=== PATIENT | male | born 1940 | race Caucasian/White ===

== ENCOUNTER 2020-02-16 09:28 | Outpatient (CLI) | payer MEDICARE, OTHER ==
[2020-02-16 10:06] LABS: BASOPHILS % (AUTO) 0.4 %; EOSINOPHILS # (AUTO) 0.1 10^3/uL (0.0-0.7); EOSINOPHILS % (AUTO) 1.4 %; HGB - HEMOGLOBIN 15.4 g/dL (14.0-18.0); LYMPHOCYTES % (AUTO) 12.2 %; MEAN CORPUSCULAR HEMOGLOBIN 30.3 pg (27.0-31.0); MEAN CORPUSCULAR HGB CONC 34.1 g/dL (32.0-36.0); MONOCYTES # (AUTO) 0.5 10^3/uL (0.0-1.0); MONOCYTES % (AUTO) 6.2 %; NEUTROPHILS # (AUTO) 6.4 10^3/uL (1.5-6.6); NEUTROPHILS % (AUTO) 79.4 %; PLT - PLATELET COUNT 180 10^3/uL (130-450); RED BLOOD COUNT 5.08 10^6/uL (4.70-6.10)
[2020-02-16 10:20] LABS: ALBUMIN 3.9 g/dL (3.2-5.5); ALBUMIN/GLOBULIN RATIO 1.4 (1.0-2.2); ALKALINE PHOSPHATASE 92 IU/L (42-121); ALT ALANINE AMINOTRANSFERASE < 10 IU/L (10-60); AST ASPARTATE AMINOTRANSFERASE 19 IU/L (10-42); BILIRUBIN,TOTAL 0.9 mg/dL (0.2-1.0); BUN - BLOOD UREA NITROGEN 15 mg/dL (6-20); CALCIUM 8.6 mg/dL (8.5-10.3); CARBON DIOXIDE - CO2 29 mmol/L (21-32); CHLORIDE 104 mmol/L (101-111); GLUCOSE 105 mg/dL (70-100); SODIUM 140 mmol/L (135-145); TOTAL PROTEIN 6.6 g/dL (6.7-8.2)
[2020-02-16 10:33] LABS: HEMOGLOBIN A1C 0.56 g/dL; HEMOGLOBIN A1C % 5.4 % (4.6-6.2)
--- NOTE | 2020-02-16 15:02 | XRAY Report ---
Reason: COPD,TABACCO DEPENDENCE,ESSENTIAL HTN Procedure Date: 02/16/2020 Accession Number: [id number] / [id number] Procedure: XR - Chest 2 View X-Ray CPT Code: 95929 Final Report FULL RESULT: EXAM: CHEST RADIOGRAPHY EXAM DATE: 02/16/2020 09:47 AM. CLINICAL HISTORY: COPD, TOBACCO DEPENDENCE, ESSENTIAL HTN. COMPARISON: XR CHEST PA AND LAT 11/03/2012 10:36 AM. TECHNIQUE: 2 views. FINDINGS: Lungs/Pleura: Trace bilateral pleural effusion seen, with right basilar airspace opacity suggestive of atelectasis versus infiltrate. Mediastinum: Heart and mediastinal contours are unremarkable. There is aortic tortuosity. Other: None. IMPRESSION: 1. Trace bilateral effusions with right basilar atelectasis versus infiltrate. RADIA
== END 2020-02-16 09:29 | disposition home or self-care (01) ==
LOC: LAB 09:28
PROVIDERS: ATTEND Family Medicine
DX: J44.9 Chronic obstructive pulmonary disease, unspecified (principal); F17.200 Nicotine dependence, unspecified, uncomplicated; R63.4 Abnormal weight loss; I10 Essential (primary) hypertension; N40.0 Benign prostatic hyperplasia without lower urinary tract symptoms; J90 Pleural effusion, not elsewhere classified
CPT/HCPCS: 36415; 71046; 80053; 83036; 84153; 84443; 85025

== ENCOUNTER 2020-06-07 13:16 | Outpatient (CLI) | payer MEDICARE, OTHER | END 2020-06-07 13:17 | disposition home or self-care (01) | LOC: COV 13:16 | PROVIDERS: ATTEND Surgery | DX: Z01.818 Encounter for other preprocedural examination (principal); K40.20 Bilateral inguinal hernia, without obstruction or gangrene, not specified as recurrent; Z20.828 Contact with and (suspected) exposure to other viral communicable diseases ==

== ENCOUNTER 2020-06-11 10:12 | Day surgery (SDC) | payer MEDICARE, OTHER ==
[2020-06-11] MEDS ORDERED: LIDOCAINE-MPF 2% 5 ML VIAL IM ONE (10:13)
[2020-06-11] MEDS ORDERED: fentaNYL 100 MCG/2 ML VIAL IVP ONE (10:13)
[2020-06-11] MEDS ORDERED: ONDANSETRON 4 MG/2 ML VIAL IVP ONE (10:13)
[2020-06-11] MEDS ORDERED: PROPOFOL 200 MG/20 ML VIAL IVP ONE (10:13)
[2020-06-11] MEDS ORDERED: DEXAMETHASONE 4 MG/ML VIAL IVP ONE (10:13)
[2020-06-11] MEDS ORDERED: ePHEDrine 50 MG/ML VIAL IVP ONE (10:13)
[2020-06-11] MEDS ORDERED: HYDROmorphone 1 MG/ML CARPUJECT IVP ONE (10:13)
[2020-06-11] MEDS ORDERED: LACTATED RINGERS 1,000 ML IV ONE ×2 (10:23→14:39)
[2020-06-11] MEDS ORDERED: CEFAZOLIN SODIUM IN 0.9 % NACL 2 GM/100 ML BAG IV ONE (10:27)
[2020-06-11] MEDS ORDERED: ONDANSETRON 4 MG/2 ML VIAL IVP PRN ×2 (11:22→14:22)
[2020-06-11] MEDS ORDERED: ePHEDrine 50 MG/ML VIAL IVP PRN (11:22)
[2020-06-11] MEDS ORDERED: MORPHINE 2 MG/ML CARPUJECT IVP PRN (11:22)
[2020-06-11] MEDS ORDERED: NALOXONE 0.4 MG/ML VIAL IVP PRN (11:22)
[2020-06-11] MEDS ORDERED: HYDROmorphone 0.5 MG/0.5 ML SYRINGE IVP PRN (11:22)
[2020-06-11] MEDS ORDERED: METOCLOPRAMIDE 10 MG/2 ML VIAL IVP PRN (11:22)
[2020-06-11] MEDS ORDERED: fentaNYL 100 MCG/2 ML VIAL IVP PRN (11:22)
[2020-06-11] MEDS ORDERED: ATROPINE ABBOJECT 1 MG/10 ML SYRINGE IVP PRN (11:22)
--- NOTE | 2020-06-11 11:22 | ANESTHESIA ---
Pre-Anesthesia VS, & Labs - Diagnosis bilateral inguinal hernia - Procedure Bilateral Inguinal Hernia Repair Vital Signs: Temp Pulse Resp BP Pulse Ox 36.8 C 81 16 170/98 H 98 06/11/20 10:23 06/11/20 10:23 06/11/20 10:23 06/11/20 10:23 06/11/20 10:23 Height 5 ft 9 in Weight (kg) 87.2 kg - NPO >8 hours - Lab Results Lab results reviewed: Yes Home Medications and Allergies Home Medications: Ambulatory Orders Benazepril HCl 40 mg PO DAILY 06/05/20 Triamterene/Hydrochlorothiazid [Triamterene-Hctz 37.5-25 mg Cp] 1 each PO DAILY 06/05/20 Benazepril HCl 40 mg PO DAILY 06/05/20 Triamterene/Hydrochlorothiazid [Triamterene-Hctz 37.5-25 mg Cp] 1 each PO DAILY 06/05/20 Allergies/Adverse Reactions: Allergies Allergy/AdvReac Type Severity Reaction Status Date / Time No Known Drug Allergies Allergy Verified 06/05/20 09:28 Anes History & Medical History - Anesthetic History Anesthesia Complications: reports: Slow wake-up Family history of Anesthesia Complications: Denies Family history of Malignant Hyperthermia: Denies - Medical History Cardiovascular: reports: Hypertension Pulmonary: reports: COPD Gastrointestinal: reports: GERD Urinary: reports: Benign prostate hypertrophy Musculoskeletal: reports: Osteoarthritis Endocrine/Autoimmune: reports: None Skin: reports: Other Smoking Status: Current every day smoker - Surgical History General: Colonoscopy Results - EKG Results EKG Comparison: Reviewed EKG Exam General: Alert, Oriented x3, Cooperative, No acute distress Dental: WNL Mouth Openin Fingerbreadth Neck Mobility: Normal Mallampati classification: II Respiratory: Lungs clear, Normal breath sounds, No respiratory distress, No accessory muscle use Cardiovascular: Regular rate, Normal S1, Normal S2, No murmurs Plan Anesthesia Type: General Consent for Procedure(s) Verified and Reviewed: Yes Code Status: Attempt Resuscitation ASA classification: 3-Severe systemic disease Is this case an emergency?: No
[2020-06-11] MEDS ORDERED: LACTATED RINGERS 1,000 ML IV SCH (12:00)
[2020-06-11] MEDS ORDERED: LIDOCAINE 1%-EPI 1:100000 20 ML MDV ONE (12:48)
[2020-06-11] MEDS ORDERED: ceFAZolin 1 GM VIAL ONE (12:49)
[2020-06-11] MEDS ORDERED: BUPIVACAINE 0.5% PF 30 ML VIAL ONE (12:49)
[2020-06-11] MEDS ORDERED: BUPIVACAINE 0.5% PF 30 ML VIAL SUBQ ONE ×2 (13:06→14:10)
[2020-06-11] MEDS ORDERED: ceFAZolin 1 GM VIAL IR ONE (13:06)
[2020-06-11] MEDS ORDERED: LIDOCAINE 1%-EPI 1:100000 30 ML MDV SUBQ ONE ×2 (13:06→14:10)
--- NOTE | 2020-06-11 14:16 | OPERATIVE REPORT ---
Operative Report - General Procedure Date: 06/11/20 Planned Procedure: Bilateral inguinal hernia repair Pre-Op Diagnosis: Bilateral inguinal hernias Procedure Performed: Bilateral inguinal hernia repair Post Op Diagnosis: Bilateral direct inguinal hernias - Procedure Note Primary Surgeon: Flavio Anesthesia Provider: DIA Chadwick Anesthesia Technique: General LMA Pathology: None Estimated Blood Loss (mL): 20 Indications: Symptomatic bilateral inguinal hernias Findings: Large direct inguinal hernias bilaterally Complications: None apparent - Other Other Information/Narrative: After obtaining informed consent, the patient is brought to the operating room and placed in the supine position on the operating table. Following successful induction of general endotracheal anesthesia, appropriate padding of all bony prominences, and placement of appropriate monitors, the abdomen was prepped and draped in the standard surgical fashion. A timeout was held per scope protocol. All elements of the surgical safety checklist were followed before, during, and after the procedure. We began the procedure by infiltrating a mixture of local anesthetics medial to the anterior superior iliac spine on the left. This was done to create an ileal inguinal nerve block. We then selected a site for an incision in the left lower quadrant just superior and lateral to the left pubic tubercle. This area was anesthetized with additional local anesthetic and an incision was created here.The incision was carried down through the skin and subcutaneous tissue to reveal the fascia of the external oblique aponeurosis. Retractor was placed and the aponeurosis was opened in direction of its fibers. The ilioinguinal nerve was immediately identified. Due to the patient's preoperative symptoms with significant pain rating down his left groin, I elected to divide the nerve. Hemostats were placed, the nerve divided between hemostats, and each side tied with a 3-0 Vicryl suture. We continued by identifying the spermatic cord and gently encircling it with a Joe drain. The hernia sac was carefully dissected free from the cord structures and was noted to be in the inferior lateral position. The hernia sack was notable for preperitoneal fat and left colon. The hernia contents were placed back into the abdominal cavity with great care. We elected to repair the hernia with a large Prolene hernia system mesh implant. This was dipped in Ancef containing solution and then deployed into the defect. The posterior leaflet was straightened and flattened in the preperitoneal space. The anterior leaflet was then nicked laterally to provide a place for the spermatic cord and then closed with a Vicryl suture. The more inferior aspect was then sewn to Vernon's ligament medially. Laterally it was tucked under the external beak aponeurosis. The wound was checked for hemostasis and irrigated with warm saline solution. It was aspirated free of all fluid and particulate matter. The extra oblique aponeurosis was then closed with a running locking Vicryl suture Annie's fascia was closed with Vicryl suture and In sorb clips were placed in the skin. We began the procedure by infiltrating a mixture of local anesthetics medial to the anterior superior iliac spine on the right. This was done to create an ileal inguinal nerve block. We then selected a site for an incision in the right lower quadrant just superior and lateral to the right pubic tubercle. This area was anesthetized with additional local anesthetic and an incision was created here.The incision was carried down through the skin and subcutaneous tissue to reveal the fascia of the external oblique aponeurosis. Retractor was placed and the aponeurosis was opened in direction of its fibers. The ilioinguinal nerve was immediately identified and preserved. We continued by identifying the spermatic cord and gently encircling it with a Joe drain. The hernia sac was carefully dissected free from the cord structures and was noted to be in the inferior lateral position. The hernia sack was notable for a large knuckle of preperitoneal fat. The hernia contents were placed back into the abdominal cavity with great care. We elected to repair the hernia with a large Prolene hernia system mesh implant. This was dipped in Ancef containing solution and then deployed into the defect. The posterior leaflet was straightened and flattened in the preperitoneal space. The anterior leaflet was then nicked laterally to provide a place for the spermatic cord and then closed with a Vicryl suture. The more inferior aspect was then sewn to Vernon's ligament medially. Laterally it was tucked under the external beak aponeurosis. The wound was checked for hemostasis and irrigated with warm saline solution. It was aspirated free of all fluid and particulate matter. The extra oblique aponeurosis was then closed with a running locking Vicryl suture Annie's fascia was closed with Vicryl suture and In sorb clips were placed in the skin. All sponge, needle, and instrument counts were correct at the conclusion of the case. The patient was allowed awaken from anesthesia without difficulty and taken to the postanesthesia care unit in good condition.
[2020-06-11] MEDS ORDERED: ACETAMINOPHEN 325 MG TABLET PO PRN (14:22)
[2020-06-11] MEDS ORDERED: IBUPROFEN 600 MG TABLET PO PRN (14:22)
[2020-06-11] MEDS ORDERED: oxyCODONE 5 MG TABLET PO PRN (14:22)
[2020-06-11 16:28] VITALS: BP 146/80
== END 2020-06-11 10:13 | disposition home or self-care (01) ==
LOC: SDS 10:12
PROVIDERS: ATTEND Surgery
DX: K40.00 Bilateral inguinal hernia, with obstruction, without gangrene, not specified as recurrent (principal); I10 Essential (primary) hypertension; N40.0 Benign prostatic hyperplasia without lower urinary tract symptoms; I25.10 Atherosclerotic heart disease of native coronary artery without angina pectoris; F17.200 Nicotine dependence, unspecified, uncomplicated
CPT/HCPCS: 49507; C1781; J0690; J1170; J7120

== ENCOUNTER 2020-09-18 10:34 | Outpatient (CLI) | payer MEDICARE, OTHER ==
[2020-09-18 11:03] LABS: BASOPHILS # (AUTO) 0.1 10^3/uL (0.0-0.1); BASOPHILS % (AUTO) 0.6 %; EOSINOPHILS # (AUTO) 0.1 10^3/uL (0.0-0.7); EOSINOPHILS % (AUTO) 1.5 %; HGB - HEMOGLOBIN 14.6 g/dL (14.0-18.0); LYMPHOCYTES # (AUTO) 1.2 10^3/uL (1.5-3.5); LYMPHOCYTES % (AUTO) 13.2 %; MEAN CORPUSCULAR HEMOGLOBIN 30.7 pg (27.0-31.0); MEAN CORPUSCULAR HGB CONC 33.5 g/dL (32.0-36.0); MEAN CORPUSCULAR VOLUME 91.8 fL (80.0-94.0); MEAN PLATELET VOLUME 8.5 fL (7.4-11.4); MONOCYTES # (AUTO) 0.6 10^3/uL (0.0-1.0); MONOCYTES % (AUTO) 6.3 %; NEUTROPHILS # (AUTO) 7.1 10^3/uL (1.5-6.6); NEUTROPHILS % (AUTO) 78.1 %; PLT - PLATELET COUNT 247 10^3/uL (130-450); RED BLOOD COUNT 4.75 10^6/uL (4.70-6.10); RED CELL DISTRIBUTION WIDTH 12.7 % (12.0-15.0); WHITE BLOOD COUNT 9.1 x10^3/uL (4.8-10.8)
== END 2020-09-18 10:35 | disposition home or self-care (01) ==
LOC: LAB 10:34
PROVIDERS: ATTEND Family Medicine
DX: I44.7 Left bundle-branch block, unspecified (principal); J44.9 Chronic obstructive pulmonary disease, unspecified; I10 Essential (primary) hypertension
CPT/HCPCS: 36415; 85025

== ENCOUNTER 2020-12-18 11:56 | Outpatient (CLI) | payer MEDICARE, OTHER ==
[2020-12-18 12:26] LABS: BASOPHILS % (AUTO) 0.1 %; EOSINOPHILS # (AUTO) 0.3 10^3/uL (0.0-0.7); EOSINOPHILS % (AUTO) 3.4 %; HCT - HEMATOCRIT 42.8 % (42.0-52.0); HGB - HEMOGLOBIN 14.2 g/dL (14.0-18.0); LYMPHOCYTES # (AUTO) 1.2 10^3/uL (1.5-3.5); LYMPHOCYTES % (AUTO) 15.7 %; MEAN CORPUSCULAR HEMOGLOBIN 30.3 pg (27.0-31.0); MEAN CORPUSCULAR HGB CONC 33.2 g/dL (32.0-36.0); MEAN CORPUSCULAR VOLUME 91.5 fL (80.0-94.0); MEAN PLATELET VOLUME 8.5 fL (7.4-11.4); MONOCYTES # (AUTO) 0.5 10^3/uL (0.0-1.0); MONOCYTES % (AUTO) 6.8 %; NEUTROPHILS # (AUTO) 5.8 10^3/uL (1.5-6.6); NEUTROPHILS % (AUTO) 73.6 %; PLT - PLATELET COUNT 205 10^3/uL (130-450); RED BLOOD COUNT 4.68 10^6/uL (4.70-6.10); RED CELL DISTRIBUTION WIDTH 13.2 % (12.0-15.0); WHITE BLOOD COUNT 7.8 x10^3/uL (4.8-10.8)
[2020-12-18 12:36] LABS: ALBUMIN 3.9 g/dL (3.2-5.5); ALBUMIN/GLOBULIN RATIO 1.7 (1.0-2.2); ALKALINE PHOSPHATASE 85 IU/L (42-121); ALT ALANINE AMINOTRANSFERASE < 10 IU/L (10-60); AST ASPARTATE AMINOTRANSFERASE 18 IU/L (10-42); BILIRUBIN,TOTAL 0.7 mg/dL (0.2-1.0); BUN - BLOOD UREA NITROGEN 19 mg/dL (6-20); CALCIUM 8.8 mg/dL (8.5-10.3); CARBON DIOXIDE - CO2 25 mmol/L (21-32); CHLORIDE 107 mmol/L (101-111); CHOL/HDL RATIO 5.4 (<5.0); CHOLESTEROL 216 mg/dL; GFR - MDRD 72 (>89); GLUCOSE 94 mg/dL (70-100); HDL CHOLESTEROL 40 mg/dL; LDL CHOLESTEROL,CALCULATED 150 mg/dL; LDL/HDL RATIO 3.8 (<3.6); POTASSIUM 3.8 mmol/L (3.5-5.0); SODIUM 138 mmol/L (135-145); TOTAL PROTEIN 6.2 g/dL (6.7-8.2); TRIGLYCERIDES 132 mg/dL; VLDL CHOLESTEROL 26 mg/dL
[2020-12-18 13:00] LABS: THYROID STIMULATING HORMONE 2.38 uIU/mL (0.34-5.60)
== END 2020-12-18 11:57 | disposition home or self-care (01) ==
LOC: LAB 11:56
PROVIDERS: ATTEND Family Medicine
DX: R97.20 Elevated prostate specific antigen [PSA] (principal); I44.0 Atrioventricular block, first degree; F17.200 Nicotine dependence, unspecified, uncomplicated; I10 Essential (primary) hypertension
CPT/HCPCS: 36415; 80053; 80061; 83721; 84153; 84443; 85025

== ENCOUNTER 2022-10-03 10:42 | Emergency (ER) | payer MEDICARE, OTHER ==
--- NOTE | 2022-10-03 11:24 | XRAY Report ---
PROCEDURE: Chest 2 View X-Ray INDICATIONS: dyspnea TECHNIQUE: 2 views of the chest were acquired. COMPARISON: Chest x-ray 04/26/2020 FINDINGS: Surgical changes and devices: None. Lungs and pleura: No mild bilateral effusions. Mediastinum: Mediastinal contours are normal. Heart size is enlarged. Bones and chest wall: No suspicious bony abnormalities. Soft tissues appear unremarkable. IMPRESSION: Mild bilateral effusions. Underlying areas of pneumonia and/or atelectasis cannot be excluded. Reviewed by: Radha Wyatt MD on 10/03/2022 11:22 AM [facility] Approved by: Radha Wyatt MD on 10/03/2022 11:22 AM [facility] Station ID: [id number]
--- NOTE | 2022-10-03 11:26 | ED Physician Documentation ---
PD HPI DYSPNEA - Stated complaint Stated Complaint: SOA/SWELLING - Chief complaint Chief Complaint: Cardiac - History obtained from History obtained from: Patient - History of Present Illness Timing - onset: How many months ago (1) Timing - onset during: Light activity Timing - duration: Months (Patient states he has had a month of progressively worsening dyspnea on exertion and orthopnea. He now has dyspnea with even light activity of just walking around the house. Also noted pedal edema the last week that has been increasing. No fever or chills. No cough. No chest pain with activity.) Timing - details: Gradual onset, Still present Improved by: Rest, Sitting up Worsened by: Exertion, Laying flat Associated symptoms: Bilateral edema. No: Fever, Cough, Palpitations Similar symptoms before: Has not had sx before (No prior history of CHF nor heart attacks. No COPD or underlying lung disease.) Recently seen: Not recently seen (He states he has not been to his primary care for couple of years since his . He lives by himself at home. Does his own ADLs. Has a neighbor that looks in on him and helps often.) Review of Systems Constitutional: denies: Fever, Chills Nose: denies: Rhinorrhea / runny nose, Congestion Throat: denies: Sore throat Respiratory: denies: Cough GI: reports: Other (decreased appetitie). denies: Abdominal Pain, Vomiting, Diarrhea, Bloody / black stool Musculoskeletal: reports: Extremity swelling Neurologic: reports: Generalized weakness. denies: Near syncope PD PAST MEDICAL HISTORY - Past Medical History Cardiovascular: Hypertension Respiratory: COPD Endocrine/Autoimmune: None GI: GERD : Benign prostate hypertrophy HEENT: Chronic vision loss, Macular degeneration, Chronic hearing loss Psych: Depression Musculoskeletal: Osteoarthritis Derm: Other - Past Surgical History General: Colonoscopy - Present Medications Home Medications: Ambulatory Orders Medication Instructions Recorded Confirmed Benazepril HCl 40 mg PO DAILY 06/05/20 06/05/20 Triamterene/Hydrochlorothiazid 1 each PO DAILY 06/05/20 06/05/20 [Triamterene-Hctz 37.5-25 mg Cp] Ondansetron Odt [Zofran Odt] 4 mg TL Q6H PRN #10 tablet 06/11/20 oxyCODONE [Roxicodone] 5 mg PO Q4-6H PRN #20 tablet 06/11/20 Benazepril HCl 10 mg PO DAILY #30 tablet 10/03/22 Furosemide [Lasix] 20 mg PO DAILY #20 tablet 10/03/22 Potassium Chloride 10 meq PO DAILY #20 tab 10/03/22 carvediloL [Coreg] 12.5 mg PO BID #40 tablet 10/03/22 - Allergies Allergies/Adverse Reactions: Allergies Allergy/AdvReac Type Severity Reaction Status Date / Time No Known Drug Allergies Allergy Verified 10/03/22 11:04 - Living Situation Living Situation: reports: Alone Living Arrangement: reports: At home - Social History Smoking Status: Current every day smoker PD ED PE NORMAL - Vitals Vital signs reviewed: Yes (Oxygen saturation is good. He is slightly tachycardic. BP elevated.) - General General: Alert and oriented X 3, Well developed/nourished - Neck Neck: Supple, no meningeal sign, No adenopathy, No bruit, Other (JVD at 45 degrees) - Cardiac Cardiac: RRR (tachycardic but regular), No murmur - Respiratory Respiratory: No respiratory distress, Other (No wheezes heard. Fine crackles in the lower third on both sides consistent with CHF. No coarse sounds.) - Abdomen Abdomen: Soft, Non tender, Non distended - Derm Derm: Normal color, Warm and dry - Extremities Extremities: No calf tenderness / cord, Other (2+ edema in both legs up to and above knees. ) - Neuro Neuro: No motor deficit, No sensory deficit, Normal speech Results - Vitals Vitals: Vital Signs - 24 hr 10/03/22 10/03/22 10/03/22 10:56 13:03 13:41 Temperature 36.4 C L Heart Rate 102 H 96 86 Respiratory 16 20 20 Rate Blood Pressure 184/116 H 179/130 H 117/80 O2 Saturation 93 95 95 Oxygen O2 Source Room air - EKG (time done) presentation Rhythm: NSR Ashby: Normal Intervals: Normal CO QRS: Normal Ischemia: Normal ST segments. No: ST elevation c/w ischemia, ST depression - Labs Labs: Laboratory Tests 10/03/22 10/03/22 10/03/22 11:27 11:27 11:27 WBC 7.5 RBC 5.67 Hgb 17.2 Hct 52.0 MCV 91.7 MCH 30.3 MCHC 33.1 RDW 14.1 Plt Count 193 MPV 9.6 Neut # (Auto) 5.7 Lymph # (Auto) 1.1 L [place] # (Auto) 0.4 Eos # (Auto) 0.2 Baso # (Auto) 0.1 Absolute Nucleated RBC 0.00 Nucleated RBC % 0.0 Sodium 143 Potassium 4.0 Chloride 109 Carbon Dioxide 24 Anion Gap 10.0 BUN 18 Creatinine 1.1 Estimated GFR (MDRD) 64 L Glucose 107 H Calcium 9.0 Magnesium 1.8 Total Bilirubin 1.3 H AST < 10 L ALT 14 Alkaline Phosphatase 68 Troponin I High Sens B-Natriuretic Peptide 2184 H Total Protein 6.3 L Albumin 3.9 Globulin 2.4 Albumin/Globulin Ratio 1.6 TSH Nasal Adenovirus (PCR) Nasal B. parapertussis DNA (PCR) Nasal Coronavir 229E PCR Nasal Coronavir HKU1 PCR Nasal Coronavir NL63 PCR Nasal Coronavir OC43 PCR Nasal Enterovir/Rhinovir PCR Nasal Influenza B PCR Nasal Influenza A PCR Nasal Parainfluen 1 PCR Nasal Parainfluen 2 PCR Nasal Parainfluen 3 PCR Nasal Parainfluen 4 PCR Nasal RSV (PCR) Nasal B.pertussis DNA PCR Nasal C.pneumoniae (PCR) Alex Human Metapneumo PCR Nasal M.pneumoniae (PCR) Nasal SARS-CoV-2 (PCR) 10/03/22 10/03/22 10/03/22 11:27 11:27 12:05 WBC RBC Hgb Hct MCV MCH MCHC RDW Plt Count MPV Neut # (Auto) Lymph # (Auto) [place] # (Auto) Eos # (Auto) Baso # (Auto) Absolute Nucleated RBC Nucleated RBC % Sodium Potassium Chloride Carbon Dioxide Anion Gap BUN Creatinine Estimated GFR (MDRD) Glucose Calcium Magnesium Total Bilirubin AST ALT Alkaline Phosphatase Troponin I High Sens 34.5 H* B-Natriuretic Peptide Total Protein Albumin Globulin Albumin/Globulin Ratio TSH 3.32 Nasal Adenovirus (PCR) NOT DETECTED Nasal B. parapertussis DNA (PCR) NOT DETECTED Nasal Coronavir 229E PCR NOT DETECTED Nasal Coronavir HKU1 PCR NOT DETECTED Nasal Coronavir NL63 PCR NOT DETECTED Nasal Coronavir OC43 PCR NOT DETECTED Nasal Enterovir/Rhinovir PCR NOT DETECTED Nasal Influenza B PCR NOT DETECTED Nasal Influenza A PCR NOT DETECTED Nasal Parainfluen 1 PCR NOT DETECTED Nasal Parainfluen 2 PCR NOT DETECTED Nasal Parainfluen 3 PCR NOT DETECTED Nasal Parainfluen 4 PCR NOT DETECTED Nasal RSV (PCR) NOT DETECTED Nasal B.pertussis DNA PCR NOT DETECTED Nasal C.pneumoniae (PCR) NOT DETECTED Alex Human Metapneumo PCR NOT DETECTED Nasal M.pneumoniae (PCR) NOT DETECTED Nasal SARS-CoV-2 (PCR) NOT DETECTED - Rads (name of study) chest xray Radiology: Prelim report reviewed, EMP read indepedently (CHF with bilateral effusions), See rad report PD Medical Decision Making - ED course Complexity details: reviewed results, re-evaluated patient (He is still feeling short of breath but less so after considerable diuresis here in the ER with IV diuretic. Blood pressures improved as well.), considered differential (Progressive symptoms of dyspnea and orthopnea along with pedal edema suggestive of new onset CHF. He is hypertensive and has been off blood pressure medicines for couple of years. 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 We do not have echo available today but can initiate treatment readily with med), d/w patient Reviewed Lab Results: His chest x-ray viewed by me independently showing bilateral interstitial changes consistent with CHF and bilateral effusions. No pneumothorax. No focal abnormalities suggest pneumonia. Is blood tests are minimal elevation of the troponin and notable elevation of his BNP which would correlate with his CHF and work of heart muscle. He was given a diuretics IV with good initial diuresis and urine output. His electrolytes and kidney function are reasonable so no signs of acute renal insufficiency. His potassium is okay K in the normal range so the diuretics are a reasonable treatment. Social Determinants of Health: He lives alone. He is with the last couple of years. Sounds like his did much of his assisting care. He has a neighbor that helps him a lot. He has a dog at home that he says needs close care that can only be done by him. ED course: The patient would actually prefer to go home as he has a dog to take care of him and he does not feel comfortable with others doing it for him. His oxygenation is adequate and he is starting to diurese well and blood pressure is improving with initial medications. At this point despite a new onset CHF, it could be reasonable to initiate treatment and have further follow-up and work-up such as echocardiogram done outpatient. Shared decision to discharge home with medications. His neighbor is here with him who will help him. Departure - Departure Disposition: 01 Home, Self Care Clinical Impression: New onset of congestive heart failure Dyspnea Qualifiers: Dyspnea type: shortness of breath Qualified Code(s): R06.02 - Shortness of breath Hypertension Qualifiers: Hypertension type: unspecified Qualified Code(s): I10 - Essential (primary) hypertension Condition: Stable Record reviewed to determine appropriate education?: Yes Instructions: ED CHF General Follow-Up: Mckay Luna MD [Provider Admit Priv/Credential] - Prescriptions: Benazepril HCl 10 mg PO DAILY #30 tablet carvediloL [Coreg] 12.5 mg PO BID #40 tablet Furosemide [Lasix] 20 mg PO DAILY #20 tablet Potassium Chloride 10 meq PO DAILY #20 tab Comments: This does look to be new onset of congestive heart failure based on your chest x-ray, blood test, symptoms. We want to treat with a diuretic (water pill) as well as medication to control your blood pressure and less stress on the heart function. This would be a combination of the benazepril blood pressure medicine you had been on previously and also a new different 1 called carvedilol. I wrote prescription for both of these as well as the water pill. Being on the diuretic, I would also be good to add a potassium supplement daily. This can be [id number] or I wrote a prescription as well. I would anticipate decreasing of the edema and improvement on your trouble breathing steadily over the next several days. Follow-up with your primary care, call the office later or Thursday to set up a ER follow-up appointment. This typically will be done in the more promptly hopefully in the next week or so. They can order outpatient appropriate testing such as an ultrasound of your heart (echocardiogram). This testing was unavailable today as the water restoration technician is not in today. Subsequent new patient appointment or a follow-up appointment will likely then be further in time. I sent your prescriptions to the [facility] pharmacy here in [place]. Return to the ER if worsening trouble breathing or if not well improving over the next several days. Activity as tolerated. Low-salt diet. Discharge Date/Time: 10/03/22 14:03
[2022-10-03 11:32] LABS: BASOPHILS # (AUTO) 0.1 10^3/uL (0.0-0.1); BASOPHILS % (AUTO) 1.1 %; EOSINOPHILS # (AUTO) 0.2 10^3/uL (0.0-0.7); HGB - HEMOGLOBIN 17.2 g/dL (14.0-18.0); LYMPHOCYTES # (AUTO) 1.1 10^3/uL (1.5-3.5); MEAN CORPUSCULAR HEMOGLOBIN 30.3 pg (27.0-31.0); MEAN CORPUSCULAR HGB CONC 33.1 g/dL (32.0-36.0); MEAN CORPUSCULAR VOLUME 91.7 fL (80.0-94.0); MEAN PLATELET VOLUME 9.6 fL (7.4-11.4); MONOCYTES # (AUTO) 0.4 10^3/uL (0.0-1.0); MONOCYTES % (AUTO) 5.7 %; NEUTROPHILS # (AUTO) 5.7 10^3/uL (1.5-6.6); NEUTROPHILS % (AUTO) 76.1 %; PLT - PLATELET COUNT 193 10^3/uL (130-450); RED BLOOD COUNT 5.67 10^6/uL (4.70-6.10); RED CELL DISTRIBUTION WIDTH 14.1 % (12.0-15.0); WHITE BLOOD COUNT 7.5 x10^3/uL (4.8-10.8)
[2022-10-03] MEDS ORDERED: METOPROLOL 5 MG/5 ML VIAL IVP STA (11:46)
[2022-10-03] MEDS ORDERED: FUROSEMIDE 40 MG/4 ML VIAL IVP STA (11:46)
[2022-10-03] MEDS ORDERED: NITROGLYCERIN SL 0.4 MG TABLET SL STA (11:47)
[2022-10-03 11:50] LABS: ALBUMIN 3.9 g/dL (3.2-5.5); ALBUMIN/GLOBULIN RATIO 1.6 (1.0-2.2); ALKALINE PHOSPHATASE 68 IU/L (42-121); ALT ALANINE AMINOTRANSFERASE 14 IU/L (10-60); AST ASPARTATE AMINOTRANSFERASE < 10 IU/L (10-42); BILIRUBIN,TOTAL 1.3 mg/dL (0.2-1.0); BUN - BLOOD UREA NITROGEN 18 mg/dL (6-20); CARBON DIOXIDE - CO2 24 mmol/L (21-32); CHLORIDE 109 mmol/L (101-111); CREATININE 1.1 mg/dL (0.6-1.2); GFR - MDRD 64 (>89); GLUCOSE 107 mg/dL (70-100); MAGNESIUM 1.8 mg/dL (1.7-2.8); SODIUM 143 mmol/L (135-145); TOTAL PROTEIN 6.3 g/dL (6.7-8.2)
[2022-10-03] MEDS ORDERED: NITROGLYCERIN 0.2 MG/HR PATCH TOP STA (11:51)
[2022-10-03 13:09] LABS: B. PARAPERTUSSIS- RESP PCR PAN NOT DETECTED; B. PERTUSSIS- RESP PCR PANEL NOT DETECTED; C. PNEUMONIAE- RESP PCR PANEL NOT DETECTED; CORONAVIRUS 229E-RESP PCR NOT DETECTED; CORONAVIRUS HKU1-RESP PCR NOT DETECTED; CORONAVIRUS NL63-RESP PCR NOT DETECTED; CORONAVIRUS OC43-RESP PCR NOT DETECTED; HUMAN METAPNEUMOVIRUS NOT DETECTED; INFLUENZA A- RESP PCR PANEL NOT DETECTED; INFLUENZA B - RESP PCR PANEL NOT DETECTED; M. PNEUMONIAE- RESP PCR PANEL NOT DETECTED; PARAINFLUENZA VIRUS 1 NOT DETECTED; PARAINFLUENZA VIRUS 2 NOT DETECTED; PARAINFLUENZA VIRUS 3 NOT DETECTED; PARAINFLUENZA VIRUS 4 NOT DETECTED; RHINOVIRUS/ENTEROVIRUS NOT DETECTED; RSV- RESP PCR PANEL NOT DETECTED; SARS-CoV-2 -RESP PCR PANEL NOT DETECTED
[2022-10-03] MEDS ORDERED: lisinopriL 5 MG TABLET PO STA (13:30)
[2022-10-03] MEDS ORDERED: carvediloL 12.5 MG TABLET PO STA (13:30)
[2022-10-03 13:41] VITALS: BP 117/80
== END 2022-10-03 14:03 | disposition home or self-care (01) ==
LOC: ED 10:42
DX: I11.0 Hypertensive heart disease with heart failure (principal); I50.9 Heart failure, unspecified; Z20.822 Contact with and (suspected) exposure to COVID-19
CPT/HCPCS: 36415; 71046; 80053; 83735; 83880; 84443; 84484; 85025; 87633; 93005; 96374; 96375; 99284; A9270

== ENCOUNTER 2022-11-18 12:47 | Outpatient (CLI) | payer MEDICARE, OTHER | END 2022-11-18 12:48 | disposition home or self-care (01) | LOC: DI 12:47 | PROVIDERS: ATTEND Family Medicine | DX: I50.1 Left ventricular failure, unspecified (principal); I08.1 Rheumatic disorders of both mitral and tricuspid valves; I49.1 Atrial premature depolarization; I49.3 Ventricular premature depolarization; I87.8 Other specified disorders of veins | CPT/HCPCS: 93306 ==

== ENCOUNTER 2023-04-14 14:38 | Outpatient (CLI) | payer MEDICARE, OTHER ==
[2023-04-14 14:59] LABS: HCT - HEMATOCRIT 38.3 % (42.0-52.0); HGB - HEMOGLOBIN 13.1 g/dL (14.0-18.0); MEAN CORPUSCULAR HEMOGLOBIN 32.3 pg (27.0-31.0); MEAN CORPUSCULAR HGB CONC 34.2 g/dL (32.0-36.0); MEAN CORPUSCULAR VOLUME 94.6 fL (80.0-94.0); MEAN PLATELET VOLUME 9.3 fL (7.4-11.4); RED BLOOD COUNT 4.05 10^6/uL (4.70-6.10); RED CELL DISTRIBUTION WIDTH 12.9 % (12.0-15.0); WHITE BLOOD COUNT 7.7 x10^3/uL (4.8-10.8)
[2023-04-14 15:46] LABS: CALCIUM 8.7 mg/dL (8.5-10.3); POTASSIUM 3.7 mmol/L (3.5-5.0)
== END 2023-04-14 14:39 | disposition home or self-care (01) ==
LOC: LAB 14:38
PROVIDERS: ATTEND Family Medicine
DX: I50.1 Left ventricular failure, unspecified (principal)
CPT/HCPCS: 36415; 80048; 83880; 85027

== ENCOUNTER 2023-12-09 08:32 | Outpatient (CLI) | payer MEDICARE, OTHER ==
[2023-12-09 08:43] LABS: BASOPHILS % (AUTO) 0.5 %; EOSINOPHILS # (AUTO) 0.3 10^3/uL (0.0-0.7); EOSINOPHILS % (AUTO) 3.2 %; HCT - HEMATOCRIT 45.8 % (42.0-52.0); HGB - HEMOGLOBIN 15.1 g/dL (14.0-18.0); LYMPHOCYTES # (AUTO) 1.1 10^3/uL (1.5-3.5); LYMPHOCYTES % (AUTO) 12.5 %; MEAN CORPUSCULAR HEMOGLOBIN 31.7 pg (27.0-31.0); MEAN CORPUSCULAR VOLUME 96.2 fL (80.0-94.0); MONOCYTES # (AUTO) 0.6 10^3/uL (0.0-1.0); MONOCYTES % (AUTO) 6.7 %; NEUTROPHILS # (AUTO) 6.5 10^3/uL (1.5-6.6); NEUTROPHILS % (AUTO) 76.6 %; PLT - PLATELET COUNT 238 10^3/uL (130-450); RED BLOOD COUNT 4.76 10^6/uL (4.70-6.10); RED CELL DISTRIBUTION WIDTH 14.5 % (12.0-15.0); WHITE BLOOD COUNT 8.5 x10^3/uL (4.8-10.8)
[2023-12-09 09:06] LABS: ALBUMIN 4.1 g/dL (3.2-5.5); ALBUMIN/GLOBULIN RATIO 1.9 (1.0-2.2); ALKALINE PHOSPHATASE 91 IU/L (42-121); ALT ALANINE AMINOTRANSFERASE 4 IU/L (10-60); AST ASPARTATE AMINOTRANSFERASE 14 IU/L (10-42); BUN - BLOOD UREA NITROGEN 14 mg/dL (6-20); CALCIUM 8.8 mg/dL (8.5-10.3); CARBON DIOXIDE - CO2 32 mmol/L (21-32); CHLORIDE 107 mmol/L (101-111); CHOL/HDL RATIO 3.1 (<5.0); CHOLESTEROL 212 mg/dL; CREATININE 1.1 mg/dL (0.6-1.3); GFR - MDRD 64 (>89); GLUCOSE 113 mg/dL (74-104); HDL CHOLESTEROL 69 mg/dL; LDL CHOLESTEROL,CALCULATED 123 mg/dL; LDL/HDL RATIO 1.8 (<3.6); POTASSIUM 3.9 mmol/L (3.5-4.5); SODIUM 144 mmol/L (135-145); TOTAL PROTEIN 6.3 g/dL (6.4-8.9); TRIGLYCERIDES 98 mg/dL (48-352); VLDL CHOLESTEROL 20 mg/dL
[2023-12-09 09:11] LABS: THYROID STIMULATING HORMONE 3.18 uIU/mL (0.34-5.60)
== END 2023-12-09 08:33 | disposition home or self-care (01) ==
LOC: LAB 08:32
PROVIDERS: ATTEND Family Medicine
DX: R39.15 Urgency of urination (principal); R00.0 Tachycardia, unspecified; I27.20 Pulmonary hypertension, unspecified; H35.30 Unspecified macular degeneration; I50.1 Left ventricular failure, unspecified
CPT/HCPCS: 36415; 80053; 80061; 83721; 84443; 85025

== ENCOUNTER 2024-04-20 16:05 | Outpatient (CLI) | payer MEDICARE, OTHER ==
[2024-04-20 16:21] LABS: BASOPHILS % (AUTO) 0.5 %; EOSINOPHILS # (AUTO) 0.3 10^3/uL (0.0-0.7); EOSINOPHILS % (AUTO) 3.3 %; HCT - HEMATOCRIT 45.5 % (42.0-52.0); HGB - HEMOGLOBIN 15.2 g/dL (14.0-18.0); LYMPHOCYTES # (AUTO) 1.1 10^3/uL (1.5-3.5); LYMPHOCYTES % (AUTO) 13.1 %; MEAN CORPUSCULAR HEMOGLOBIN 33.5 pg (27.0-31.0); MEAN CORPUSCULAR HGB CONC 33.4 g/dL (32.0-36.0); MEAN CORPUSCULAR VOLUME 100.2 fL (80.0-94.0); MEAN PLATELET VOLUME 9.1 fL (7.4-11.4); MONOCYTES # (AUTO) 0.6 10^3/uL (0.0-1.0); MONOCYTES % (AUTO) 6.9 %; NEUTROPHILS # (AUTO) 6.2 10^3/uL (1.5-6.6); PLT - PLATELET COUNT 195 10^3/uL (130-450); RED BLOOD COUNT 4.54 10^6/uL (4.70-6.10); RED CELL DISTRIBUTION WIDTH 14.1 % (12.0-15.0); WHITE BLOOD COUNT 8.2 x10^3/uL (4.8-10.8)
[2024-04-20 16:42] LABS: ALBUMIN 3.9 g/dL (3.2-5.5); ALBUMIN/GLOBULIN RATIO 1.6 (1.0-2.2); ALKALINE PHOSPHATASE 90 IU/L (42-121); ALT ALANINE AMINOTRANSFERASE 6 IU/L (10-60); AST ASPARTATE AMINOTRANSFERASE 19 IU/L (10-42); BILIRUBIN,TOTAL 0.8 mg/dL (0.2-1.0); BUN - BLOOD UREA NITROGEN 12 mg/dL (6-20); CALCIUM 9.4 mg/dL (8.5-10.3); CARBON DIOXIDE - CO2 29 mmol/L (21-32); CHLORIDE 108 mmol/L (101-111); CHOL/HDL RATIO 2.7 (<5.0); CHOLESTEROL 203 mg/dL; GFR - MDRD 72 (>89); GLUCOSE 93 mg/dL (74-104); HDL CHOLESTEROL 76 mg/dL; LDL CHOLESTEROL,CALCULATED 100 mg/dL; LDL/HDL RATIO 1.3 (<3.6); SODIUM 144 mmol/L (135-145); TOTAL PROTEIN 6.3 g/dL (6.4-8.9); TRIGLYCERIDES 137 mg/dL; VLDL CHOLESTEROL 27 mg/dL
== END 2024-04-20 16:06 | disposition home or self-care (01) ==
LOC: LAB 16:05
PROVIDERS: ATTEND Family Medicine
DX: I11.0 Hypertensive heart disease with heart failure (principal); I50.1 Left ventricular failure, unspecified; R00.0 Tachycardia, unspecified; I27.20 Pulmonary hypertension, unspecified; J44.9 Chronic obstructive pulmonary disease, unspecified
CPT/HCPCS: 36415; 80053; 80061; 83721; 83880; 84443; 85025